=== PATIENT | female | born 1970 | race Caucasian/White ===

== ENCOUNTER → 2016-11-03 | Outpatient (CLI) | payer MEDICAID | LOC: BMCIMAGING 15:46 | PROVIDERS: ATTEND Internal Medicine | DX: R07.9 Chest pain, unspecified (principal); R50.9 Fever, unspecified; M32.9 Systemic lupus erythematosus, unspecified ==

== ENCOUNTER → 2017-12-19 | Outpatient (CLI) | payer MEDICAID | LOC: BMCIMAGING 13:39 | PROVIDERS: ATTEND Internal Medicine | DX: Z12.31 Encounter for screening mammogram for malignant neoplasm of breast (principal); Z13.820 Encounter for screening for osteoporosis; Z78.0 Asymptomatic menopausal state; Z87.81 Personal history of (healed) traumatic fracture; Z92.241 Personal history of systemic steroid therapy ==

== ENCOUNTER → 2018-04-19 | Outpatient (CLI) | payer MEDICAID | LOC: FCPNEURO 20:00 | PROVIDERS: ATTEND Psychiatry & Neurology Sleep Medicine | DX: G47.31 Primary central sleep apnea (principal) ==